=== PATIENT | female | born 1950 | race Caucasian/White ===

== ENCOUNTER → 2017-10-14 | Outpatient (CLI) | payer OTHER ==
[~2017-10-14] MED LIST: ATV/1 PO; CHOLCAP5 PO; CLB/200 PO; DIAZ-165 PO; VENL150C56 PO
== END | disposition home or self-care (01) ==
LOC: C.LABMFLN 10:39
PROVIDERS: ATTEND Orthopaedic Surgery Sports Medicine
DX: Z01.818 Encounter for other preprocedural examination (principal)

== ENCOUNTER 2017-10-29 05:08 | Inpatient (IN) | payer OTHER ==
[2017-09-30 13:49] VITALS: Ht 152.4 cm; Wt 93.5 kg
--- NOTE | 2017-09-30 14:40 | PAT Medication Instructions ---
Service Date Sep 30, 2017. Current Home Medication List Celecoxib (CeleBREX), 200 MG PO QAM Cholecalciferol (Vitamin D3), 5,000 UNITS PO QAM Diazepam (Valium), 5 MG PO TID PRN for PRN Lorazepam (Ativan), 1 MG PO TID PRN for PRN Venlafaxine Hcl (Effexor Extended Rel), 150 MG PO QAM Medication Instructions For Your Scheduled Surgery -Contact your surgeon for instructions for: Celecoxib (CeleBREX), 200 MG PO QAM - Hold the following medications the morning of surgery: Cholecalciferol (Vitamin D3), 5,000 UNITS PO QAM - Take the following medications the morning of surgery with a sip of water: Diazepam (Valium), 5 MG PO TID PRN for PRN (if needed) Lorazepam (Ativan), 1 MG PO TID PRN for PRN (if needed) Venlafaxine Hcl (Effexor Extended Rel), 150 MG PO QAM - Take the following medications as scheduled the night before surgery: Diazepam (Valium), 5 MG PO TID PRN for PRN (if needed) Lorazepam (Ativan), 1 MG PO TID PRN for PRN (if needed) If you have any questions please call us at [phone] or [phone] or [phone]
--- NOTE | 2017-09-30 15:01 | DIAGNOSTIC IMAGING REPORT ---
CHEST 2 VIEWS ROUTINE CLINICAL HISTORY: Preoperative chest COMPARISON STUDY: 08/11/2012 FINDINGS: There is a large hiatal hernia. This makes assessment of cardiac size difficult. There is no failure. There is no focal pulmonary consolidation. There are no pleural effusions.[ IMPRESSION: Large hiatal hernia. No acute findings. Electronically signed by: Patricio Chadwick M.D. 09/30/2017 3:00 PM Dictated Date/Time: 09/30/2017 3:00 PM
[2017-09-30 15:24] LABS: BASO ABS # 0.05 K/uL (0-0.2); EOS % 8.1 %; EOS ABS # 0.42 K/uL (0-0.5); HEMATOCRIT 38.1 % (37-47); HEMOGLOBIN 12.4 g/dL (12.0-16.0); IG# 0.01 K/uL (0.00-0.02); LYMPH % 29.4 %; LYMPH ABS # 1.53 K/uL (1.2-3.4); MEAN CELL VOLUME 89.6 fL (80-100); MEAN CORPUSCULAR HEMOGLOBIN 29.2 pg (25-34); MEAN CORPUSCULAR HGB CONC 32.5 g/dl (32-36); MEAN PLATELET VOLUME 9.3 fL (7.4-10.4); MONO % 11.3 %; MONO ABS # 0.59 K/uL (0.11-0.59); NEUT ABS # 2.61 K/uL (1.4-6.5); PLATELET COUNT 315 K/uL (130-400); RED CELL DISTRIBUTION WIDTH CV 15.5 % (11.5-14.5); RED CELL DISTRIBUTION WIDTH SD 49.6 fL (36.4-46.3); WHITE BLOOD COUNT 5.21 K/uL (4.8-10.8)
[2017-09-30 15:34] LABS: ALBUMIN 3.6 gm/dl (3.4-5.0); CALCIUM 8.9 mg/dl (8.5-10.1); CREATININE 0.89 mg/dl (0.60-1.20); POTASSIUM 3.8 mmol/L (3.5-5.1)
[2017-09-30 15:35] LABS: PTT PATIENT 24.4 SECONDS (21.0-31.0)
[2017-10-01 07:05] LABS: HEMOGLOBIN A1C 5.9 % (4.5-5.6)
--- NOTE | 2017-10-28 18:20 | HISTORY & PHYSICAL EXAMINATION ---
DATE OF ADMISSION: 10/29/2017 ADMISSION HISTORY AND PHYSICAL CHIEF COMPLAINT: Chronic left hip pain. HISTORY OF PRESENT ILLNESS: This is a 67-year-old female patient of Dr. Rucker'masood complaining of chronic left hip pain, longstanding, now progressively getting worse. The patient has been diagnosed with end-stage osteoarthritis in her left hip, per clinical and radiographic exams. The patient has failed conservative treatment including anti-inflammatories. The patient has increased pain with weightbearing activities and her pain does interfere with her activities of daily living. PAST MEDICAL HISTORY: Acid reflux, hiatal hernia, obesity and osteoarthritis. SOCIAL HISTORY: Nonsmoker, nondrinker. PAST SURGICAL HISTORY: Knee replacement on the left and right hip replacement. FAMILY HISTORY: Noncontributory. REVIEW OF SYSTEMS: The patient complains of chronic left hip pain. Otherwise, denies any shortness of breath, chest pain, nausea, vomiting or any other joint complaints. MEDICATIONS: 1. Ambien 10 mg at bedtime as needed. 2. Ativan 1 mg t.i.d. p.r.n. 3. Effexor 150 mg daily. 4. Valium 5 mg p.r.n. for anxiety. 5. Celebrex 200 mg daily. 6. vit D 5000 units daily. 7. Ferrous gluconate 324 mg b.i.d. ALLERGIES: No known drug allergies. PHYSICAL EXAMINATION: GENERAL: Well-developed, well-nourished 67-year-old female, in no acute distress. She is alert and oriented x3 and pleasant. HEENT: Normocephalic, atraumatic. Extraocular motions are intact. Pupils are equal and reactive to light. HEART: Regular rate and rhythm, no murmurs are appreciated. LUNGS: Clear. ABDOMEN: Soft and nontender. Bowel sounds are present. EXTREMITIES: Left hip, extremity: She has pain with passive range of motion with internal and external rotation. She has no flexion contracture. She has 5/5 strength with some discomfort. NEUROLOGICALLY AND NEUROVASCULARLY: She is intact in her left lower extremity. DIAGNOSES: Left hip end-stage osteoarthritis, acid reflux, hiatal hernia, obesity and osteoarthritis. PLAN: The patient was advised of her diagnosis. Indications, risks, benefits, postop course have all been reviewed. The patient wished to proceed with a left total hip arthroplasty. Necessary consent forms, preoperative testing and clearances will be obtained. MTDD
[~2017-10-29] VITALS: Ht 152.4 cm; Wt 93.5 kg
[2017-10-29] VITALS (9 sets, daily range): BP systolic 91–143; BP diastolic 52–86; PULSE 71–80; TEMP 36.5–36.9; O2SAT 90–99
[2017-10-29] MEDS ORDERED: GABAPENTIN 300 MG CAP PO SCH (06:00)
[2017-10-29] MEDS ORDERED: LACTATED RINGER'S 1000ML 1,000 ML IV SCH (06:00)
[2017-10-29] MEDS ORDERED: LACTATED RINGER'S 1000ML 500 ML IV SCH (06:00)
[2017-10-29] MEDS ORDERED: ACETAMINOPHEN 500 MG TAB PO SCH (06:00)
[2017-10-29] MEDS ORDERED: CEFAZOLIN 2000MG IV PUSH 15 ML IV SCH (06:00)
[2017-10-29] MEDS ORDERED: ROPIVACAINE 5MG/ML 30 ML 150 MG, BUPIVACAINE 0.5% MPF INJ 30 ML, EpINEphrine HCL INJ 0.... INFIL SCH ×7 (06:00)
[2017-10-29] MEDS ORDERED: FAMOTIDINE 20 MG TAB PO SCH (06:00)
[2017-10-29] MEDS ORDERED: METOCLOPRAMIDE HCL 10 MG TAB PO SCH (06:00)
[2017-10-29] MEDS ORDERED: DEXAMETHASONE 4 MG TAB PO SCH (06:00)
[2017-10-29] MEDS ORDERED: CeleBREX 200 MG CAP PO SCH (06:00)
[2017-10-29] MEDS ORDERED: BUPIVACAINE 0.5 % 5 MG/1 ML PF 10ML VIAL ONE (06:26)
[2017-10-29] MEDS ORDERED: BACITRACIN 50000 UNIT VIAL ONE (06:57)
[2017-10-29] MEDS ORDERED: ORTHO JOINT ANESTHETIC ONE (06:57)
[2017-10-29] MEDS ORDERED: POVIDONE-IODINE OP SOLN 30 ML BTL ONE (06:57)
[2017-10-29] MEDS ORDERED: PROPOFOL IV EMULSION 10 MG/ML 20 ML VIAL IV ONE ×2 (06:58→09:21)
[2017-10-29] MEDS ORDERED: MIDAZOLAM HCL 1 MG/ML 2ML VIAL ONE (06:58)
[2017-10-29] MEDS ORDERED: FENTANYL CITRATE INJ 50 MCG/1 ML 2 ML VIAL ONE (06:58)
--- NOTE | 2017-10-29 06:59 | History & Physical Bridge Note ---
H&P Re-Evaluation Bridge Note: I have examined the patient, reviewed the History & Physical and in the interval since the performance of the History & Physical I have noted the following changes of clinical significance: No changes noted
[2017-10-29] MEDS ORDERED: ATROPINE SULFATE 0.1 MG/ML 5ML SYR IV PRN (08:00)
[2017-10-29] MEDS ORDERED: EpHEDrine SULFATE INJ 50 MG/ML AMP IV PRN (08:00)
[2017-10-29] MEDS ORDERED: ONDANSETRON INJ 2 MG/ML 2 ML VIAL IV PRN ×2 (08:00→10:15)
[2017-10-29] MEDS ORDERED: PHENYLEPHRINE 100MCG/ML 5ML SYR IV PRN (08:00)
[2017-10-29] MEDS ORDERED: HYDROmorphone INJ 0.5 MG/0.5 ML SYR IV PRN (08:00)
[2017-10-29] MEDS ORDERED: DiphenhydrAMINE HCL 50 MG/ML VIAL ONE (08:21)
[2017-10-29] MEDS ORDERED: LIDOCAINE HCL 2% 2 ML VIAL (20MG/ML) ONE (09:21)
--- NOTE | 2017-10-29 10:04 | [facility] Post Operative Brief Note ---
Immediate Operative Summary Operative Date Oct 29, 2017. Pre-Operative Diagnosis Left hip end stage osteoarthritis Post-Operative Diagnosis Left hip end stage osteoarthritis Procedure(s) Performed Left Total Hip Arthroplasty, uncemented Surgeon Dr. Rucker Factory Superintendent Surgeon(s) James Vizcarra PA-C Estimated Blood Loss 200ml Findings Consistent with Post-Op Diagnosis Specimens A: Left femoral head Drains 2 hemovac Anesthesia Type Spinal MAC Complication(s) none Disposition Disposition: Recovery Room / PACU
[2017-10-29] MEDS ORDERED: ZOLPIDEM TARTRATE 5 MG TAB PO PRN (10:15)
[2017-10-29] MEDS ORDERED: TRAMADOL HCL 50 MG TAB PO PRN (10:15)
[2017-10-29] MEDS ORDERED: MAGNESIUM HYDROXIDE SUSP 30 ML UDC PO PRN (10:15)
[2017-10-29] MEDS ORDERED: MoRPHine SULFATE 2 MG/ML CARP IV PRN (10:15)
[2017-10-29] MEDS ORDERED: METOCLOPRAMIDE HCL INJ 5 MG/ML 2 ML VIAL IV PRN (10:15)
[2017-10-29] MEDS ORDERED: BISACODYL 10 MG SUPP PR PRN (10:15)
[2017-10-29] MEDS ORDERED: SOD PHOSPHATE/SOD BIPHOSPHATE ENEMA 132 ML BTL PR PRN (10:15)
[2017-10-29] MEDS ORDERED: DIAZEPAM 5MG TAB PO PRN (10:15)
[2017-10-29] MEDS ORDERED: LORAZEPAM 1 MG TAB PO PRN (10:15)
--- NOTE | 2017-10-29 10:26 | [facility] Operative Report ---
Operative Report Operative Date Oct 29, 2017. Pre-Operative Diagnosis Left hip end stage osteoarthritis, obesity BMI 40.3 Post-Operative Diagnosis Same Surgeon Dr. Rucker Supervising Law Enforcement Analyst Surgeon(s) James Vizcarra PA-C Estimated Blood Loss 200ml Findings Advanced osteoarthritis left hip Specimens A: Left femoral head Drains 2 hemovac Anesthesia Spinal sedation and orthomix Complication(s) None Disposition Recovery Room / PACU Indications 67-year-old female failed conservative management osteoarthritis left hip. Had osteoarthritis in her right hip and had previous successful right hip replacement. Patient wants to proceed with left hip replacement at this time. Description of Procedure Patient was taken to the operating room and anesthetized under spinal anesthesia. Patient was placed supine on the operating table. Exam of the involved extremity demonstrated passive flexion to 110 internal rotation to 15 and obese belly and obesity around the hip area as well.The patient was placed on a sacral pad and the involved leg was placed on a foot bump to flex knee 90 and hip 60. Because of her obesity had to tape her belly fat to the opposite side of the operating table to facilitate exposure. The left hip and lower extremity were prepped and draped with ChloraPrep in the usual fashion. a Zamarripa-type approach was performed to the left hip. A longitudinal lateral incision was made over the left hip. The skin was incised sharply. The fat was divided down to the fascia. Subcutaneous bleeders are cauterized. Trochanteric bursa was resected. A split was made in the gluteus medius muscle between the anterior 40% and posterior 60%. The minimus was divided longitudinally reflected off the underlying capsule. The capsule was incised down to the hip joint. Intra-articular findings demonstrated a thickened scarred capsule neck osteophytes peripheral osteophytes central region of the femoral head had significant thinning the acetabulum had subchondral cysts and acetabular wear. An incision was made through the gluteus medius leaving a cuff of tendon for repair on the greater trochanter. The vastus lateralis was split longitudinally for about 3 cm. A muscular capsular flap was elevated off the hip. The hip was dislocated with use of bone hook and with flexion and external rotation of the hip. The femoral neck cut was made approximately 15 mm proximal to the lesser trochanter in neutral anteversion. Head and neck fragment were removed. The femoral head was measured around 50 mm diameter. A self-retaining superior tractor was impacted into the ilium, a blunt Rober retractor was placed anteriorly a double angled inferior retractor was placed on the ischium. The acetabular labrum was resected all osteophytes were resected.The soft tissue in the acetabular fossa was resected. An anterior capsular release was performed. Some the capsule was resected for exposure. The first reamer size 44 was used to medialize reaming to the inner table and then sequential reamers for the acetabulum were used in 2 mm increments up to a size 52 mm. I used the Darlyn total hip arthroplasty system using a PSL type cup. Trial reduction demonstrated a tight press-fit with the 52 millimeter cup being the appropriate size and fit. The placement of the final implant was performed after irrigating the acetabulum with antibiotic solution with pulsatile lavage. The position of the cup was approximately 15 anteversion 45 abduction. Good fixation was performed. 2 screws were placed in the posterior superior quadrant for further fixation through the cup. Screws were size 25 and 30 mm length 6.5 mm cancellus screws. The acetabular liner was impacted into position. The 36 mm diameter 10 high wall E acetabular liner was used. Retractors removed and attention was taken to the femur. The femur was exposed with flexion external rotation. Canal reamer was used followed by sequential broaches up to a size 4 for the Accolade 2 Darlyn tapered stem. This had a good fit and fill. Trial reduction was performed with a 127 neck angle based on preoperative templating. A - 5 neck length gave equal leg lengths and stable range of motion through full flexion flexion adduction and internal rotation and extension and external rotation. The trials removed and after irrigation again and the final implant was impacted which was the Accolade 2 size 4,127 degree neck angle. The Biolox ceramic head size 36 was used. After final implants replaced the reduction was noted to be stable. 2 drains were placed deep. These were brought out laterally and connected to Hemovac. The minimus was closed with interrupted [id number] #1 Vicryl sutures. The medius was closed with transosseous #5 FiberWire sutures using Huey Zhang suture technique. Lateral row soft tissue repair was performed with figure of 8 #2 FiberWire sutures. The medius split was closed with interrupted [id number] #1 Vicryl sutures. The vastus lateralis was closed with interrupted figure of eight #1Vicryl sutures. The fascia lillian was closed with interrupted figure of eight #1 Vicryl sutures. The fat was closed with [id number] #2 Vicryl sutures. Skin was closed with dorothy and sterile Silverlon dressing was applied. The patient tolerated procedure well. James PENA my physician political science research assistant assisted me in the procedure with patient positioning And draping soft tissue retraction instrument management suture management and assisted in the outer layer closure and will participate in the postoperative care the patient thank you. I attest to the content of the Intraoperative Record and any orders documented therein. Any exceptions are noted below.
--- NOTE | 2017-10-29 10:32 | DIAGNOSTIC IMAGING REPORT ---
L PELVIS/UNILATERAL HIP 1 VIEW CLINICAL HISTORY: Left hip arthroplasty. COMPARISON: Pelvis radiograph September 07, 2012. FINDINGS: Alignment of the total left hip arthroplasty is anatomic. There is no fracture or unexpected radiopaque foreign body. There are 2 acetabular screws, skin dorothy and surgical drains. A right hip arthroplasty is noted. IMPRESSION: Expected findings following total left hip arthroplasty. Electronically signed by: Ari Armas M.D. 10/29/2017 10:31 AM Dictated Date/Time: 10/29/2017 10:30 AM
--- NOTE | 2017-10-29 11:00 | Anesthesiology Progress Note ---
Anesthesia Post Op Note Date & Time Oct 29, 2017 at 11:00 Vital Signs Pain Intensity: 0 Vital Signs Past 12 Hours Date Time Temp Pulse Resp B/P (MAP) Pulse Ox O2 Delivery O2 Flow Rate FiO2 10/29/17 10:55 94 Nasal Cannula 3.0 10/29/17 10:46 94 Nasal Cannula 3.0 10/29/17 10:43 36.9 71 16 133/86 (102) 90 Nasal Cannula 3.0 10/29/17 10:20 36.6 80 16 120/72 99 Nasal Cannula 3 10/29/17 10:10 36.6 75 16 135/85 99 Nasal Cannula 4 10/29/17 10:00 36.6 77 16 144/77 99 Nasal Cannula 4 10/29/17 05:44 36.9 80 20 143/81 93 Room Air Notes Mental Status: alert / awake / arousable, participated in evaluation Pt Amnestic to Procedure: Yes Nausea / Vomiting: adequately controlled Pain: adequately controlled Airway Patency, RR, SpO2: stable & adequate BP & HR: stable & adequate Hydration State: stable & adequate Anesthetic Complications: no major complications apparent
[2017-10-29] MEDS: TRANEXAMIC ACID INJ 1,000 MG x 2 Bags IV SCH ×4 (11:38→11:39)
--- NOTE | 2017-10-29 11:49 | Medical Consult ---
Consultation Date of Consultation: Oct 29, 2017. Attending Physician: Yao Rucker M.D. Reason for Consultation: Postop medical management History of Present Illness 67-year-old female who is status post left total hip replacement today by Dr. Rucker. Postoperatively the patient is doing well. She reports her pain is well controlled. She denies numbness or tingling to lower extremities. No chest pain or shortness of breath. She denies lightheadedness and dizziness. No abdominal pain or nausea. Past Medical/Surgical History Medical Problems: (1) Anxiety Status: Chronic Surgical Problems: (1) H/O dilation and curettage Status: Chronic (2) History of total left hip replacement Status: Chronic (3) History of total left knee replacement Status: Chronic Family History FH: lymphoma MOTHER Social History Smoking Status: Never Smoker Alcohol Use: none Allergies Coded Allergies: No Known Allergies (Unverified , 10/29/17) Home Medications CeleBREX (Celecoxib) 200 Mg Cap 200 Mg PO QAM Valium (Diazepam) 5 Mg Tab 5 Mg PO TID PRN Ativan (Lorazepam) 1 Mg Tab 1 Mg PO TID PRN Vitamin D3 (Cholecalciferol) 5,000 Unit Cap 5,000 Units PO QAM Effexor Extended Rel (Venlafaxine Hcl) 150 Mg Cap 150 Mg PO QAM Current Inpatient Medications Current Inpatient Medications Medications (Trade) Dose Ordered Sig/Sanjana Route Start Time Stop Time Status Last Admin Dose Admin Cefazolin Sodium 15 ml @ 3.75 mls/ min PREOP IV 10/29/17 06:00 10/29/17 18:00 10/29/17 07:14 3.75 MLS/MIN Acetaminophen (Tylenol Tab) 1,000 mg PREOP PO 10/29/17 06:00 10/29/17 18:00 10/29/17 06:25 1,000 MG Celecoxib (CeleBREX CAP) 200 mg PREOP PO 10/29/17 06:00 10/29/17 18:00 10/29/17 06:23 200 MG Dexamethasone (Decadron Tab) 8 mg PREOP PO 10/29/17 06:00 10/29/17 18:00 10/29/17 06:24 8 MG Famotidine (Pepcid Tab) 20 mg PREOP PO 10/29/17 06:00 10/29/17 18:00 10/29/17 06:24 20 MG Gabapentin (Neurontin Cap) 300 mg PREOP PO 10/29/17 06:00 10/29/17 18:00 10/29/17 06:24 300 MG Metoclopramide HCl (Reglan Tab) 10 mg PREOP PO 10/29/17 06:00 10/29/17 18:00 10/29/17 06:24 10 MG Lactated Ringer's 1,000 ml @ 15 mls/hr Q24H IV 10/29/17 06:00 10/30/17 05:59 10/29/17 06:22 15 MLS/HR Hydromorphone HCl (Dilaudid Inj) 0.5 mg Q5M PRN IV 10/29/17 08:00 10/29/17 13:00 Ondansetron HCl (Zofran Inj) 4 mg ONE PRN IV 10/29/17 08:00 10/29/17 13:00 Ephedrine Sulfate (EpHEDrine SULFATE INJ) 5 mg Q5M PRN IV 10/29/17 08:00 10/29/17 13:00 Atropine Sulfate (Atropine Sulfate 0.1mg/ml Inj) 0.5 mg Q1M PRN IV 10/29/17 08:00 10/29/17 13:00 Phenylephrine HCl (Gt-Synephrine 500MCG/5ML Syr) 100 mcg Q5M PRN IV 10/29/17 08:00 10/29/17 13:00 Diazepam (Valium Tab) 5 mg TID PRN PO 10/29/17 10:15 11/28/17 10:14 Lorazepam (Ativan Tab) 1 mg TID PRN PO 10/29/17 10:15 11/28/17 10:14 Venlafaxine HCl (effeXOR EXTENDED REL CAP) 150 mg QAM PO 10/30/17 09:00 11/29/17 08:59 Cholecalciferol (Vitamin D Tab) 5,000 inter.unit DAILY PO 10/30/17 09:00 11/29/17 08:59 Potassium Chloride/Dextrose/ Sod Cl 1,000 ml @ 100 mls/hr Q10H IV 10/29/17 11:15 10/30/17 10:00 Celecoxib (CeleBREX CAP) 200 mg BID PO 10/29/17 21:00 11/28/17 20:59 Oxycodone HCl (Roxicodone Immediate Rel Tab) 1 TABLET FOR PAIN RATING... Q4H PRN PO 10/29/17 10:15 11/12/17 10:14 Morphine Sulfate (MoRPHine SULFATE INJ) as needed Q2H PRN IV 10/29/17 10:15 11/12/17 10:14 Acetaminophen (Tylenol Tab) 1,000 mg Q8H PO 10/29/17 14:00 11/28/17 13:59 Magnesium Hydroxide (Milk Of Magnesia Susp) 30 ml Q6H PRN PO 10/29/17 10:15 11/28/17 10:14 Bisacodyl (Dulcolax Supp) 10 mg DAILY PRN ME 10/29/17 10:15 11/28/17 10:14 Sodium Biphosphate/ Sodium Phosphate (Fleet Enema) 132 ml DAILY PRN ME 10/29/17 10:15 11/28/17 10:14 Docusate Sodium (coLACE CAP) 100 mg BID PO 10/29/17 21:00 11/28/17 20:59 Diphenhydramine HCl (Benadryl Cap) 25 mg Q8H PRN PO 10/29/17 10:15 11/28/17 10:14 Zolpidem Tartrate (Ambien Tab) 5 mg HSZ PRN PO 10/29/17 10:15 11/28/17 10:14 Multivitamins (Multivitamin Tab) 1 tab QAM PO 10/30/17 09:00 11/29/17 08:59 Ondansetron HCl (Zofran Inj) 4 mg Q6H PRN IV 10/29/17 10:15 11/28/17 10:14 Metoclopramide HCl (Reglan Inj) 10 mg Q6H PRN IV 10/29/17 10:15 11/28/17 10:14 Pantoprazole Sodium (Protonix Tab) 40 mg QAM PO 10/30/17 09:00 11/02/17 09:01 Tramadol HCl (Ultram Tab) 1 TABLET FOR PAIN RATING... Q4H PRN PO 10/29/17 10:15 11/28/17 10:14 Cefazolin Sodium 2000 mg/Syringe 15 ml @ 3.75 mls/ min Q8H IV 10/29/17 16:00 10/30/17 00:03 Aspirin (Ecotrin Tab) 81 mg BID PO 10/29/17 21:00 11/28/17 20:59 Review of Systems ROS per HPI, all other systems reviewed and negative Physical Exam Date Time Temp Pulse Resp B/P (MAP) Pulse Ox O2 Delivery O2 Flow Rate FiO2 10/29/17 11:13 71 16 115/70 (85) 97 Nasal Cannula 3.0 10/29/17 10:55 94 Nasal Cannula 3.0 10/29/17 10:46 94 Nasal Cannula 3.0 10/29/17 10:43 36.9 71 16 133/86 (102) 90 Nasal Cannula 3.0 10/29/17 10:20 36.6 80 16 120/72 99 Nasal Cannula 3 10/29/17 10:10 36.6 75 16 135/85 99 Nasal Cannula 4 10/29/17 10:00 36.6 77 16 144/77 99 Nasal Cannula 4 10/29/17 05:44 36.9 80 20 143/81 93 Room Air General Appearance: WD/WN, no apparent distress Head: normocephalic, atraumatic Eyes: normal inspection, EOMI, sclerae normal ENT: hearing grossly normal, + pertinent finding (Mucous membranes moist) Neck: supple, no JVD, trachea midline Respiratory/Chest: lungs clear, normal breath sounds, no respiratory distress Cardiovascular: regular rate, rhythm, no edema, normal peripheral pulses Abdomen/GI: normal bowel sounds, non tender, soft, no organomegaly Extremities/Musculoskelatal: + pertinent finding (S/P left hip surgery, surgical dressing dry and intact, drain in place draining bloody drainage, CSM checks intact to LLE) Neurologic/Psych: no motor/sensory deficits, alert, normal mood/affect, oriented x 3 Skin: normal color, warm/dry Assessment & Plan S/P LEFT ALYSSA - POD#0 - activity and wound care orders as per ortho - pain control with bowel regimen - PT/OT - monitor H/H for acute blood loss anemia and transfuse blood products PRN - EBL 200 cc ANXIETY -Continue venlafaxine DVT PROPHYLAXIS -Aspirin 81 mg twice daily as per ortho Thank you for this consultation. We will follow the patient with you during their hospital stay. You can reach a [facility] 17[facility]02 via pager @ . Attending Note: Patient is a 67 yr female with PMH of Vit D deficiency, Anxiety disorder, Hiatal hernia, arthritis who underwent elective Total Left hip arthroplasty was seen and examined post OP. Patient is doing well post OP. Hip pain is well controlled. Denies any chest pain, SOB, dizziness, abdominal pain. Physical Exam: Vitals signs as noted above General Appearance:Obese, no apparent distress Head: normocephalic, Atraumatic Eyes: normal inspection, EOMI, PERRL Neck: supple, Trachea midline Respiratory/Chest: Decreased breath sounds, CTA Cardiovascular: S1, S2, No murmur Abdomen/GI:Soft, Non tender, Bowel sounds present Extremities/Musculoskelatal:normal inspection, no edema, +Left Hip surgical bandage, +drain Neurologic/Psych:AAOX3, grossly no focal neurological deficits Skin:normal color,warm Assessment and Plan: S/P Left Total Hip Arthroplasty: POD # 0 Pain is controlled Monitor for post OP anemia Bowel regimen to prevent constipation Monitor for post OP anemia PT/OT DVT Px as per Primary team I personally reviewed the record. Patient is interviewed and examined at bedside. Patient's care is coordinated with Jacquelin Rojas ROAD MAKER. Please refer to the documentation above for details of patient's presentation and for discussion of other issues.
[2017-10-29] MEDS: D5W AND 1/2NSS + 20MEQ KCL 1,000 ML IV SCH ×2 (12:25→21:55)
[2017-10-29] MEDS: ACETAMINOPHEN 500 MG TAB PO SCH ×2 (15:10→21:56)
[2017-10-29] MEDS: CEFAZOLIN IV 2,000 MG in SYRINGE 0 ML IV SCH ×2 (15:44→23:40)
[2017-10-29] MEDS: OXYCODONE HCL IR 5 MG TAB (IMMEDIATE RELEASE) PO PRN (18:40)
[2017-10-29] MEDS: CeleBREX 200 MG CAP PO SCH (21:56)
[2017-10-29] MEDS: DOCUSATE SODIUM 100 MG CAP PO SCH (21:57)
[2017-10-29] MEDS: ASPIRIN 81 MG ECTAB PO SCH (21:57)
[2017-10-30 03:10] VITALS: BP 111/68; PULSE 74; TEMP 36.6; O2SAT 94
[2017-10-30] MEDS: ACETAMINOPHEN 500 MG TAB PO SCH ×3 (05:43→21:16)
[2017-10-30 06:42] LABS: BASO % 0.1 %; BASO ABS # 0.02 K/uL (0-0.2); EOS % 0.1 %; EOS ABS # 0.01 K/uL (0-0.5); HEMATOCRIT 31.3 % (37-47); HEMOGLOBIN 10.1 g/dL (12.0-16.0); IG# 0.03 K/uL (0.00-0.02); LYMPH % 9.4 %; LYMPH ABS # 1.27 K/uL (1.2-3.4); MEAN CELL VOLUME 88.9 fL (80-100); MEAN CORPUSCULAR HEMOGLOBIN 28.7 pg (25-34); MEAN CORPUSCULAR HGB CONC 32.3 g/dl (32-36); MEAN PLATELET VOLUME 9.6 fL (7.4-10.4); MONO ABS # 1.35 K/uL (0.11-0.59); NEUT % 80.2 %; NEUT ABS # 10.82 K/uL (1.4-6.5); PLATELET COUNT 231 K/uL (130-400); RED CELL DISTRIBUTION WIDTH CV 14.6 % (11.5-14.5); RED CELL DISTRIBUTION WIDTH SD 47.1 fL (36.4-46.3)
[2017-10-30 07:11] LABS: CREATININE 0.94 mg/dl (0.60-1.20); POTASSIUM 4.5 mmol/L (3.5-5.1)
[2017-10-30 07:49] VITALS: BP 108/67; PULSE 78; TEMP 36.5; O2SAT 94
--- NOTE | 2017-10-30 07:55 | Orthopedic Progress Note ---
Orthopedic Progress Note Date of Service Oct 30, 2017. Subjective Post OP Day: 1 Reports: feeling well, Denies: chest pain, SOB, nausea / vomiting, light headedness, calf pain Objective calves soft nontender, N/V intact, hip located, dressing C/D/I, A&O x3, toes mobile, hemovac drainage (125/55 cc per shift) Date Time Temp Pulse Resp B/P (MAP) Pulse Ox O2 Delivery O2 Flow Rate FiO2 10/30/17 07:49 36.5 78 16 108/67 (81) 94 Room Air 10/30/17 03:10 36.6 74 16 111/68 (82) 94 Room Air 10/29/17 23:45 Room Air 10/29/17 23:27 36.5 77 16 101/66 (78) 94 Room Air 10/29/17 15:14 36.9 80 16 111/74 (86) 92 Room Air 10/29/17 13:45 36.9 77 18 91/52 (65) 98 Nasal Cannula 2.0 10/29/17 12:42 36.7 75 19 109/73 (85) 95 Nasal Cannula 2.0 10/29/17 11:45 36.5 73 18 113/78 (90) 99 Nasal Cannula 2.0 10/29/17 11:13 71 16 115/70 (85) 97 Nasal Cannula 3.0 10/29/17 11:00 Nasal Cannula 3.0 10/29/17 10:55 94 Nasal Cannula 3.0 10/29/17 10:46 94 Nasal Cannula 3.0 10/29/17 10:43 36.9 71 16 133/86 (102) 90 Nasal Cannula 3.0 10/29/17 10:20 36.6 80 16 120/72 99 Nasal Cannula 3 10/29/17 10:10 36.6 75 16 135/85 99 Nasal Cannula 4 10/29/17 10:00 36.6 77 16 144/77 99 Nasal Cannula 4 Laboratory Results 24 Hours: Test 10/30/17 06:28 White Blood Count 13.50 K/uL Red Blood Count 3.52 M/uL Hemoglobin 10.1 g/dL Hematocrit 31.3 % Mean Corpuscular Volume 88.9 fL Mean Corpuscular Hemoglobin 28.7 pg Mean Corpuscular Hemoglobin Concent 32.3 g/dl Platelet Count 231 K/uL Mean Platelet Volume 9.6 fL Neutrophils (%) (Auto) 80.2 % Lymphocytes (%) (Auto) 9.4 % Monocytes (%) (Auto) 10.0 % Eosinophils (%) (Auto) 0.1 % Basophils (%) (Auto) 0.1 % Neutrophils # (Auto) 10.82 K/uL Lymphocytes # (Auto) 1.27 K/uL Monocytes # (Auto) 1.35 K/uL Eosinophils # (Auto) 0.01 K/uL Basophils # (Auto) 0.02 K/uL Assessment & Plan Assessment: POD#1 SP LEFT ALYSSA Plan: PT/OT DVT PROPH- ASA 81MG BID PAIN MANAGEMENT- GÓMEZ, TYLENOL DC PLANNING- POSSIBLE DC HOME TODAY HOME PT. ADVANTAGE IF THEY'LL TAKE MIFFLIN CTY.
[2017-10-30] MEDS ORDERED: CLB/200 PO (08:03)
[2017-10-30] MEDS ORDERED: ASPEC81 PO (08:03)
[2017-10-30] MEDS ORDERED: ONDA-170 PO (08:03)
[2017-10-30] MEDS ORDERED: RXC5 PO (08:03)
[2017-10-30] MEDS ORDERED: SODIENE6 PR (08:03)
[2017-10-30] MEDS ORDERED: ACET-24 PO (08:03)
--- NOTE | 2017-10-30 08:04 | Discharge Instructions ---
Discharge Instructions Date of Service Oct 30, 2017. Admission Reason for Admission: Left Hip Osteoarthritis Discharge Discharge Diagnosis / Problem: SP LEFT ALYSSA Discharge Goals Goal(s): Decrease discomfort, Improve function, Increase independence Activity Recommendations Activity Limitations: per Instructions/Follow-up section . Instructions / Follow-Up Instructions / Follow-Up ACTIVITY RECOMMENDATIONS: SELF CARE INSTRUCTIONS AFTER TOTAL HIP REPLACEMENT Until the incision and soft tissues around your hip have healed, there is a possibility that the hip prosthesis could dislocate. A. Observe the following precautions to prevent dislocation: 1. Don't bend your hip greater than 90 degrees. 2. Avoid crossing your legs or ankles while standing or lying. 3. Sit with your feet placed 6 inches apart. 4. When sitting, keep your knees below your hips. Sit on a firm surface, avoid deep, soft chairs and couches. Use an elevated toilet seat in the bathroom. 5. Don't bend over at the waist. Use a long handled shoehorn and a sock aid to help you put on your shoes and socks. A manager hospitality can help you pick pulling machine operator objects that are too high or too low to reach. 6. Keep car riding to a minimum for at least one month after surgery. B. Your balance may be shaky for a while. Use crutches or a walker until directed by your doctor. C. Use hand rails when walking on stairs. D. Wear low heeled shoes with non-slip soles. E. Be sure that your floors are free of things that could trip you - throw rugs , electrical cords, small objects. Avoid wet and waxed floors, especially with crutches and canes. F. Try to walk several times a day with rest periods between. G. Continue with all the exercises taught to you in the hospital. Again, make walking a part of your daily routine. SPECIAL CARE INSTRUCTIONS: VERY IMPORTANT TO READ AND REVIEW A. You may still be at risk for phlebitis and blood clots. 1. Wear surgical stockings (LG hose) for 2 weeks after surgery to improve circulation and reduce swelling. 2. Take Aspirin 81mg twice daily for 4 weeks or as directed by your doctor. This is your blood thinner. 3. High risk patients may be prescribed a stronger blood thinner if necessary. 4. If you are on Coumadin normally, your family doctor/intelligence chief should monitor your blood work. Expect a phone call the day of or the day after bloodwork is drawn to adjust your dosage. B. You must take antibiotics before having dental work, bladder, bowel and other surgery. Your doctor will provide you with a permanent card to carry describing precautions. C. Call [facility] if you have a fever, redness or swelling around the incision, cloudy drainage from incision, or sudden increase in pain in your hip, not relieved by your regular pain medication. D. Please call the office at if you have any concerns or questions about your operation or recovery. * YOU MAY SHOWER, NO TUB BATHS UNTIL CLEARED BY YOUR DOCTOR. * WEAR LG HOSE 20 HOURS PER DAY FOR 2 WEEKS. * YOU SHOULD USE A WALKER OR CRUTCHES FOR 2-4 WEEKS. THIS WILL HELP PREVENT STRAIN ON YOUR HIP MUSCLE AND ALLOW IT TO HEAL PROPERLY. YOU MAY WEAN TO A CANE TOLERATED. * MOST PATIENTS WILL HAVE HOME NURSING FOR THERAPY. IF YOU DECIDE TO DO OUTPATIENT PHYSICAL THERAPY, PLEASE SCHEDULE THIS 3 TIMES PER WEEK. * YOU MAY HAVE A LARGE, BAND-OTILIA LIKE DRESSING (SILVERON). THIS WILL REMAIN ON YOUR INCISION FOR 7 DAYS, THEN CAN BE REMOVED. IF INCISION IS LEAKING THROUGH DRESSING, PLEASE CALL THE OFFICE . FOLLOW UP VISIT: If appointment is not already scheduled: Please call [facility] to make a follow-up appointment for 2 weeks after your surgery at . Current Hospital Diet Patient's current hospital diet: Regular Diet Discharge Diet Recommended Diet: Regular Diet Procedures Procedures Performed: Left Total Hip Arthroplasty, uncemented Pending Studies Studies pending at discharge: no Laboratory Results Hemoglobin A1c Test 09/30/17 14:17 Range/Units Estimated Average Glucose 123 mg/dl Hemoglobin A1c 5.9 H 4.5-5.6 % Medical Emergencies . Who to Call and When: Medical Emergencies: If at any time you feel your situation is an emergency, please call 911 immediately. . Non-Emergent Contact Non-Emergency issues call your: Surgeon . "Provider Documentation" section prepared by Kimi Ch. .
[2017-10-30] MEDS: D5W AND 1/2NSS + 20MEQ KCL 1,000 ML IV SCH (08:16)
[2017-10-30] MEDS: OXYCODONE HCL IR 5 MG TAB (IMMEDIATE RELEASE) PO PRN ×3 (08:20→19:25)
[2017-10-30] MEDS: CeleBREX 200 MG CAP PO SCH ×2 (08:30→21:16)
[2017-10-30] MEDS: CHOLECALCIFEROL 1000 INTER.UNIT TAB PO SCH (08:30)
[2017-10-30] MEDS: DOCUSATE SODIUM 100 MG CAP PO SCH ×2 (08:31→21:15)
[2017-10-30] MEDS: MULTIVITAMIN TAB PO SCH (08:31)
[2017-10-30] MEDS: VENLAFAXINE HCL XR 150 MG CAPXR PO SCH (08:31)
[2017-10-30] MEDS: PANTOprazole SOD 40 MG TAB PO SCH (08:31)
[2017-10-30] MEDS: ASPIRIN 81 MG ECTAB PO SCH ×2 (08:31→21:15)
--- NOTE | 2017-10-30 08:40 | Clinical Documentation Query ---
CLINICAL DOCUMENTATION QUERY 67 yo female with left total hip replacement has UA micro positive for e. coli. In your clinical opinion is this patient being managed for: ( ) Urinary tract infection ( ) Not Agree ( ) Other explanation of clinical findings (Please Explain) ( ) Unable to determine (Please Define) ( ) Need to Discuss The medical record reflects the following clinical findings, treatment, and risk factors. Clinical Indicators: As above Treatment: Cefazolin IV Risk Factors: Female, s/p surgical intervention Please clarify and document your clinical opinion in the progress notes and discharge summary. Terms such as "probable", "suspected", "likely", "questionable", "possible", or "still to be ruled out" are acceptable. IF IN AGREEMENT, YOU MUST DOCUMENT ABOVE DIAGNOSTIC STATEMENT IN DAILY PROGRESS NOTES AND DISCHARGE SUMMARY. This document is not part of the patient's record. Thank You, Charmaine Hayden RN [phone]
--- NOTE | 2017-10-30 08:54 | Anesthesiology Progress Note ---
Anesthesia Post Op Note Date & Time Oct 30, 2017 at 08:54 Vital Signs Pain Intensity: 4.0 Vital Signs Past 12 Hours Date Time Temp Pulse Resp B/P (MAP) Pulse Ox O2 Delivery O2 Flow Rate FiO2 10/30/17 07:49 36.5 78 16 108/67 (81) 94 Room Air 10/30/17 03:10 36.6 74 16 111/68 (82) 94 Room Air 10/29/17 23:45 Room Air 10/29/17 23:27 36.5 77 16 101/66 (78) 94 Room Air Notes Mental Status: alert / awake / arousable, participated in evaluation Pt Amnestic to Procedure: Yes Nausea / Vomiting: adequately controlled Pain: adequately controlled Airway Patency, RR, SpO2: stable & adequate BP & HR: stable & adequate Hydration State: stable & adequate Neuraxial Anesthesia: was administered, sensory block resolved Anesthetic Complications: no major complications apparent
[2017-10-30 11:02] VITALS: BP 113/70; PULSE 74; TEMP 36.5; O2SAT 94
[2017-10-30 15:42] VITALS: BP 103/61; PULSE 84; TEMP 36.4; O2SAT 95
[2017-10-30] MEDS ORDERED: CALCIUM CARBONATE 500 MG CHEWABLE PO ONE (16:37)
[2017-10-30] MEDS ORDERED: CALCIUM CARBONATE 500 MG CHEWABLE PO PRN (16:45)
--- NOTE | 2017-10-30 17:00 | Progress Note ---
Medicine Progress Note Date & Time of Visit: Oct 30, 2017 at 16:38. Subjective 67-year-old female status post left total hip arthroplasty. She is doing well postop with complaints of heartburn but no pain. Pain is well controlled with medications at this time. She ambulated well with physical therapy who recommend she return home when medically stable. She is tolerating p.o. Objective Last 8 Hrs Date Time Temp Pulse Resp B/P (MAP) Pulse Ox O2 Delivery O2 Flow Rate FiO2 10/30/17 15:42 36.4 84 18 103/61 (75) 95 Room Air 10/30/17 11:02 36.5 74 16 113/70 (84) 94 Room Air Physical Exam: GEN: WNWD, in no acute distress, alert and appropriate HEENT: NC/AT, normal sclerae, MMM CARDIO: reg rate, S1/2 heard without m/g/r LUNGS: CTA bilaterally, no crackles, rales or wheezes, good diaphragmatic excursion ABD: soft, non-tender, non-distended EXTREMITY: RP and DP palpable 2+ bilat, no LE swelling or edema, extremities are warm and well-perfused NEURO: CN 2-12 grossly intact, sensation intact throughout, LLE NVI MUSC: 5/5 strength throughout, no focal deficits SKIN: warm and dry Laboratory Results: 10/30/17 06:28 Red Blood Count 3.52, Mean Corpuscular Volume 88.9, Mean Corpuscular Hemoglobin 28.7, Mean Corpuscular Hemoglobin Concent 32.3, Mean Platelet Volume 9.6, Neutrophils (%) (Auto) 80.2, Lymphocytes (%) (Auto) 9.4, Monocytes (%) (Auto) 10.0, Eosinophils (%) (Auto) 0.1, Basophils (%) (Auto) 0.1, Neutrophils # (Auto ) 10.82, Lymphocytes # (Auto) 1.27, Monocytes # (Auto) 1.35, Eosinophils # (Auto ) 0.01, Basophils # (Auto) 0.02 10/30/17 06:28 Test 09/30/17 14:17 10/30/17 06:28 Prothrombin Time 10.3 SECONDS (9.0-12.0) Prothromb Time International Ratio 1.0 (0.9-1.1) Activated Partial Thromboplast Time 24.4 SECONDS (21.0-31.0) Partial Thromboplastin Ratio 0.9 Urine Color YELLOW Urine Appearance CLOUDY (CLEAR) Urine pH 5.0 (4.5-7.5) Urine Specific Clyde 1.033 (1.000-1.030) Urine Protein NEG (NEG) Urine Glucose (UA) NEG (NEG) Urine Ketones TRACE (NEG) Urine Occult Blood NEG (NEG) Urine Nitrite NEG (NEG) Urine Bilirubin NEG (NEG) Urine Urobilinogen NEG (NEG) Urine Leukocyte Esterase NEG (NEG) Urine WBC (Auto) 5-10 /hpf (0-5) Urine RBC (Auto) 0-4 /hpf (0-4) Urine Hyaline Casts (Auto) 1-5 /lpf (0-5) Urine Epithelial Cells (Auto) >30 /lpf (0-5) Urine Bacteria (Auto) 2+ (NEG) Urine Crystals CALCIUM OXALATE (NONE Estimated Average Glucose 123 mg/dl Hemoglobin A1c 5.9 % (4.5-5.6) Albumin 3.6 gm/dl (3.4-5.0) White Blood Count 13.50 K/uL (4.8-10.8) Red Blood Count 3.52 M/uL (4.2-5.4) Hemoglobin 10.1 g/dL (12.0-16.0) Hematocrit 31.3 % (37-47) Mean Corpuscular Volume 88.9 fL (80-100) Mean Corpuscular Hemoglobin 28.7 pg (25-34) Mean Corpuscular Hemoglobin Concent 32.3 g/dl (32-36) Platelet Count 231 K/uL (130-400) Mean Platelet Volume 9.6 fL (7.4-10.4) Neutrophils (%) (Auto) 80.2 % Lymphocytes (%) (Auto) 9.4 % Monocytes (%) (Auto) 10.0 % Eosinophils (%) (Auto) 0.1 % Basophils (%) (Auto) 0.1 % Neutrophils # (Auto) 10.82 K/uL (1.4-6.5) Lymphocytes # (Auto) 1.27 K/uL (1.2-3.4) Monocytes # (Auto) 1.35 K/uL (0.11-0.59) Eosinophils # (Auto) 0.01 K/uL (0-0.5) Basophils # (Auto) 0.02 K/uL (0-0.2) RDW Standard Deviation 47.1 fL (36.4-46.3) RDW Coefficient of Variation 14.6 % (11.5-14.5) Immature Granulocyte % (Auto) 0.2 % Immature Granulocyte # (Auto) 0.03 K/uL (0.00-0.02) Anion Gap 4.0 mmol/L (3-11) Est Creatinine Clear Calc Drug Dose 59.3 ml/min Estimated GFR () 72.8 Estimated GFR (Non- 62.8 BUN/Creatinine Ratio 18.6 (10-20) Calcium Level 8.0 mg/dl (8.5-10.1) Date/Time Source Procedure Growth Status 09/30/17 14:17 Urine , Clean Catch Urine Culture - Final Escherichia Coli Complete Last 24 Hours Test 10/30/17 06:28 White Blood Count 13.50 K/uL Red Blood Count 3.52 M/uL Hemoglobin 10.1 g/dL Hematocrit 31.3 % Mean Corpuscular Volume 88.9 fL Mean Corpuscular Hemoglobin 28.7 pg Mean Corpuscular Hemoglobin Concent 32.3 g/dl Platelet Count 231 K/uL Mean Platelet Volume 9.6 fL Neutrophils (%) (Auto) 80.2 % Lymphocytes (%) (Auto) 9.4 % Monocytes (%) (Auto) 10.0 % Eosinophils (%) (Auto) 0.1 % Basophils (%) (Auto) 0.1 % Neutrophils # (Auto) 10.82 K/uL Lymphocytes # (Auto) 1.27 K/uL Monocytes # (Auto) 1.35 K/uL Eosinophils # (Auto) 0.01 K/uL Basophils # (Auto) 0.02 K/uL RDW Standard Deviation 47.1 fL RDW Coefficient of Variation 14.6 % Immature Granulocyte % (Auto) 0.2 % Immature Granulocyte # (Auto) 0.03 K/uL Sodium Level 136 mmol/L Potassium Level 4.5 mmol/L Chloride Level 104 mmol/L Carbon Dioxide Level 28 mmol/L Anion Gap 4.0 mmol/L Blood Urea Nitrogen 17 mg/dl Creatinine 0.94 mg/dl Est Creatinine Clear Calc Drug Dose 59.3 ml/min Estimated GFR () 72.8 Estimated GFR (Non- 62.8 BUN/Creatinine Ratio 18.6 Random Glucose 138 mg/dl Calcium Level 8.0 mg/dl Assessment & Plan 67-year-old female status post left total hip arthroplasty. She is doing well postop with complaints of heartburn but no pain. Pain is well controlled with medications at this time. She ambulated well with physical therapy who recommend she return home when medically stable. She is tolerating p.o. 1. Postop state status post left ALYSSA-postop day 1. Activity and wound care orders as per Orth O. Pain control with bowel regimen. PT/OT. Monitor H&H for acute blood loss anemia and transfuse as needed. 2. Anxiety-controlled, continue venlafaxine per outpatient regimen 3. Acute blood loss anemia-likely secondary to recent surgery. No indication for transfusion. Monitor H&H in a.m. 4. Leukocytosis-likely secondary to intraoperative steroid use and/or stress response. DVT PROPHYLAXIS -Aspirin 81 mg twice daily as per ortho Full code Disposition-likely to home in a.m. discharge per Orth O Thank you for this consultation. We will follow the patient with you during their hospital stay. You can reach a member of the [facility] Hospitalist Team 17/02 via pager @ . Keira Oreilly, [facility] Current Inpatient Medications: Current Inpatient Medications Medications (Trade) Dose Ordered Sig/Sanjana Route Start Time Stop Time Status Last Admin Dose Admin Diazepam (Valium Tab) 5 mg TID PRN PO 10/29/17 10:15 11/28/17 10:14 Lorazepam (Ativan Tab) 1 mg TID PRN PO 10/29/17 10:15 11/28/17 10:14 Venlafaxine HCl (effeXOR EXTENDED REL CAP) 150 mg QAM PO 10/30/17 09:00 11/29/17 08:59 10/30/17 08:31 150 MG Cholecalciferol (Vitamin D Tab) 5,000 inter.unit DAILY PO 10/30/17 09:00 11/29/17 08:59 10/30/17 08:30 5,000 INTER.UNIT Celecoxib (CeleBREX CAP) 200 mg BID PO 10/29/17 21:00 11/28/17 20:59 10/30/17 08:30 200 MG Oxycodone HCl (Roxicodone Immediate Rel Tab) 1 TABLET FOR PAIN RATING... Q4H PRN PO 10/29/17 10:15 11/12/17 10:14 10/30/17 14:00 10 MG Morphine Sulfate (MoRPHine SULFATE INJ) as needed Q2H PRN IV 10/29/17 10:15 11/12/17 10:14 Acetaminophen (Tylenol Tab) 1,000 mg Q8H PO 10/29/17 14:00 11/28/17 13:59 10/30/17 14:00 1,000 MG Magnesium Hydroxide (Milk Of Magnesia Susp) 30 ml Q6H PRN PO 10/29/17 10:15 11/28/17 10:14 Bisacodyl (Dulcolax Supp) 10 mg DAILY PRN SC 10/29/17 10:15 11/28/17 10:14 Sodium Biphosphate/ Sodium Phosphate (Fleet Enema) 132 ml DAILY PRN SC 10/29/17 10:15 11/28/17 10:14 Docusate Sodium (coLACE CAP) 100 mg BID PO 10/29/17 21:00 11/28/17 20:59 10/30/17 08:31 100 MG Diphenhydramine HCl (Benadryl Cap) 25 mg Q8H PRN PO 10/29/17 10:15 11/28/17 10:14 Zolpidem Tartrate (Ambien Tab) 5 mg HSZ PRN PO 10/29/17 10:15 11/28/17 10:14 Multivitamins (Multivitamin Tab) 1 tab QAM PO 10/30/17 09:00 11/29/17 08:59 10/30/17 08:31 1 TAB Ondansetron HCl (Zofran Inj) 4 mg Q6H PRN IV 10/29/17 10:15 11/28/17 10:14 Metoclopramide HCl (Reglan Inj) 10 mg Q6H PRN IV 10/29/17 10:15 11/28/17 10:14 Pantoprazole Sodium (Protonix Tab) 40 mg QAM PO 10/30/17 09:00 11/02/17 09:01 10/30/17 08:31 40 MG Tramadol HCl (Ultram Tab) 1 TABLET FOR PAIN RATING... Q4H PRN PO 10/29/17 10:15 11/28/17 10:14 Aspirin (Ecotrin Tab) 81 mg BID PO 10/29/17 21:00 11/28/17 20:59 10/30/17 08:31 81 MG
[2017-10-30 23:30] VITALS: BP 107/70; PULSE 86; TEMP 36.5; O2SAT 92
[2017-10-31] MEDS: OXYCODONE HCL IR 5 MG TAB (IMMEDIATE RELEASE) PO PRN ×2 (02:55→08:02)
[2017-10-31] MEDS: ACETAMINOPHEN 500 MG TAB PO SCH (05:35)
[2017-10-31 07:10] LABS: BASO % 0.4 %; BASO ABS # 0.03 K/uL (0-0.2); EOS % 2.2 %; EOS ABS # 0.16 K/uL (0-0.5); HEMATOCRIT 29.9 % (37-47); HEMOGLOBIN 9.5 g/dL (12.0-16.0); IG# 0.01 K/uL (0.00-0.02); LYMPH % 16.1 %; LYMPH ABS # 1.18 K/uL (1.2-3.4); MEAN CELL VOLUME 89.3 fL (80-100); MEAN CORPUSCULAR HEMOGLOBIN 28.4 pg (25-34); MEAN CORPUSCULAR HGB CONC 31.8 g/dl (32-36); MEAN PLATELET VOLUME 9.1 fL (7.4-10.4); MONO % 13.3 %; MONO ABS # 0.97 K/uL (0.11-0.59); NEUT % 67.9 %; NEUT ABS # 4.97 K/uL (1.4-6.5); PLATELET COUNT 201 K/uL (130-400); WHITE BLOOD COUNT 7.32 K/uL (4.8-10.8)
[2017-10-31 07:36] VITALS: BP 103/67; PULSE 73; TEMP 36.8; O2SAT 93
[2017-10-31 07:41] LABS: CALCIUM 8.2 mg/dl (8.5-10.1); CREATININE 0.72 mg/dl (0.60-1.20); POTASSIUM 4.3 mmol/L (3.5-5.1)
--- NOTE | 2017-10-31 08:02 | Orthopedic Progress Note ---
Orthopedic Progress Note Date of Service Oct 31, 2017. Subjective Post OP Day: 2 Reports: feeling well, Denies: chest pain, SOB, nausea / vomiting, light headedness, calf pain Objective calves soft nontender, N/V intact, hip located, capillary refill less than 2 sec., dressing C/D/I, A&O x3, toes mobile Date Time Temp Pulse Resp B/P (MAP) Pulse Ox O2 Delivery O2 Flow Rate FiO2 10/31/17 07:36 36.8 73 18 103/67 (79) 93 Room Air 10/30/17 23:30 36.5 86 14 107/70 (82) 92 Room Air 10/30/17 19:25 Room Air 10/30/17 16:00 Room Air 10/30/17 15:42 36.4 84 18 103/61 (75) 95 Room Air 10/30/17 11:02 36.5 74 16 113/70 (84) 94 Room Air 10/30/17 08:15 Room Air Laboratory Results 24 Hours: Test 10/31/17 06:57 White Blood Count 7.32 K/uL Red Blood Count 3.35 M/uL Hemoglobin 9.5 g/dL Hematocrit 29.9 % Mean Corpuscular Volume 89.3 fL Mean Corpuscular Hemoglobin 28.4 pg Mean Corpuscular Hemoglobin Concent 31.8 g/dl Platelet Count 201 K/uL Mean Platelet Volume 9.1 fL Neutrophils (%) (Auto) 67.9 % Lymphocytes (%) (Auto) 16.1 % Monocytes (%) (Auto) 13.3 % Eosinophils (%) (Auto) 2.2 % Basophils (%) (Auto) 0.4 % Neutrophils # (Auto) 4.97 K/uL Lymphocytes # (Auto) 1.18 K/uL Monocytes # (Auto) 0.97 K/uL Eosinophils # (Auto) 0.16 K/uL Basophils # (Auto) 0.03 K/uL Assessment & Plan Assessment: POD#2 SP LEFT ALYSSA Plan: PT/OT DVT PROPH- ASA 81MG BID PAIN MANAGEMENT- GÓMEZ, TYLENOL DC PLANNING- DC HOME TODAY HOME PT. ADVANTAGE IF THEY'LL TAKE MIFFLIN CTY.
[2017-10-31] MEDS: CHOLECALCIFEROL 1000 INTER.UNIT TAB PO SCH (08:38)
[2017-10-31] MEDS: PANTOprazole SOD 40 MG TAB PO SCH (08:38)
[2017-10-31] MEDS: ASPIRIN 81 MG ECTAB PO SCH (08:38)
[2017-10-31] MEDS: VENLAFAXINE HCL XR 150 MG CAPXR PO SCH (08:38)
[2017-10-31] MEDS: MULTIVITAMIN TAB PO SCH (08:38)
[2017-10-31] MEDS: CeleBREX 200 MG CAP PO SCH (08:38)
[2017-10-31] MEDS: DOCUSATE SODIUM 100 MG CAP PO SCH (08:38)
[2017-10-31 10:35] VITALS: BP 103/67; PULSE 73; TEMP 36.8; O2SAT 93
== END 2017-10-31 11:30 | disposition home health service (06) | DRG 470 ==
LOC: C.ACU 05:08 → C.3E 06:55 → ENRESERV 10:25
PROVIDERS: ADMIT Orthopaedic Surgery Sports Medicine; ATTEND Orthopaedic Surgery Sports Medicine
PROC: 0SRB0JA Replacement of Left Hip Joint with Synthetic Substitute, Uncemented, Open Approach (ICD-10-PCS; principal; 2017-10-29 07:15)
DX: M16.12 Unilateral primary osteoarthritis, left hip (principal); D62 Acute posthemorrhagic anemia; E66.9 Obesity, unspecified; Z68.41 Body mass index [BMI] 40.0-44.9, adult; K21.9 Gastro-esophageal reflux disease without esophagitis; F41.9 Anxiety disorder, unspecified; Z96.641 Presence of right artificial hip joint; Z96.652 Presence of left artificial knee joint; Z79.899 Other long term (current) drug therapy